=== PATIENT | male | born 1960 | race Caucasian/White ===

== ENCOUNTER 2019-02-01 18:04 | Emergency (ER) | payer OTHER, SELFPAY ==
[2019-02-01 18:12] VITALS: BP 166/102; PULSE 71; RESP 20; O2SAT 99
--- NOTE | 2019-02-01 20:28 | ED_ITS ---
HPI - General Adult General Chief complaint: Extremity Injury, Upper Stated complaint: LACERATION OF LEFT HAND NOT HEALING Time Seen by Provider: 02/01/19 20:04 Source: patient Mode of arrival: Ambulatory Limitations: no limitations History of Present Illness HPI narrative: 58-year-old male who several weeks ago underwent a left middle finger trigger finger release and also carpal tunnel [place]. He states that since that time he has had the stitch in the palm of his hand removed. He did feel like that the wound opened up after that. He then started developing some redness on his left middle finger. Since that time he has completed 1 course of antibiotics. He is currently on a 2nd course of doxycycline. He has been seen in the walk-in clinic. He was told by his provid er that he should be followed up by Orthopedics here in the local area. He is not from this area but will be here for the next month or so. Related Data Home Medications Medication Instructions Recorded Confirmed amlodipine PO 01/31/19 01/31/19 losartan PO 01/31/19 01/31/19 Previous Rx's Medication Instructions Recorded doxycycline hyclate 100 mg tablet 100 mg PO BID 10 Days #20 tab 01/31/19 Allergies Allergy/AdvReac Type Severity Reaction Status Date / Time Sulfa (Sulfonamide Allergy Intermediate rash Verified 01/31/19 17:54 Antibiotics) moxifloxacin Allergy Verified 02/01/19 18:16 Review of Systems Constitutional Constitutional: Denies fever(s) Musculoskeletal Comments: Redness left middle finger with some pain with flexion Integumentary/Breasts Comments: Redness to the left middle finger Neurologic Neurologic: Denies behavioral changes Psychiatric Psychiatric: Denies behavioral changes Hematologic/Lymphatic Hematologic/Lymphatic: Denies easy bleeding and Denies easy bruising Patient History Medical History Hypertension (Acute) Social History Smoking Status: Never smoker alcohol intake frequency: holidays/special occasions only Alcohol type: beer and hard liquor Substance Use Type: does not use Exam Initial Vital Signs Initial Vital Signs: Vital Signs Pulse Rate 71 02/01/19 18:12 Respiratory Rate 20 02/01/19 18:12 Blood Pressure 166/102 H 02/01/19 18:12 Pulse Oximetry 99 02/01/19 18:12 Const General: cooperative, healthy appearing, comfortable and well developed Cardio Pulses: radial pulses present on the left Skin Other: Redness on the volar aspect of the left middle finger from the MCP joint distal. Does have a 1 cm open wound on the palm of his hand at the base of the left middle finger consistent with his trigger finger release surgery. Neuro General: alert and awake Sensory Exam: no sensory deficits noted Extrem General: normal to inspection and capillary refill normal Other: Left wrist unremarkable Psych Appearance: grossly normal and well kempt Course Vital Signs Vital signs: Vital Signs - 8 hr 02/01/19 18:12 02/01/19 20:33 Pulse Rate 71 69 Respiratory Rate 20 20 Blood Pressure 166/102 H Blood Pressure [Right Arm] 160/99 H Pulse Oximetry 99 98 Medical Decision Making [facility] Narrative Medical decision making narrative: Patient does have redness and swelling to the left middle finger. I do have concern about infection in this area. He is currently on antibiotics for this. I have low suspicion for flexor tendon synovitis. He is nontoxic appearing. There is no abscess to be drained. He does have a wound on the palm of his hand consistent with the stated history. There is no redness around this area. His carpal tunnel surgery site looks well. I do not feel the need to change his antibiotics. He was given phone number for follow-up with Orthopedics the beginning of next week which he did not think is unreasonable. He was also instructed to talk with his insurance company and also his primary provider. He was given return precautions. He expressed understanding and agreement with plan. Discharge Plan Departure Patient Disposition: Home Clinical Impression: Cellulitis of finger of left hand Discharge Date/Time: 02/01/19 20:35 Instructions: DI for Cellulitis -- Adult Activity Restrictions/Additional Instructions: Recommend that you continue with the doxycycline. On Monday call the [facility] group. Their phone number is [phone] for a follow-up. Continue with all the other care instructions that we discussed. Return to the emergency department for any new or worsening symptoms Prescriptions: No Action losartan PO RF: 0 amlodipine PO RF: 0 doxycycline hyclate 100 mg tablet 100 mg PO BID 10 Days Qty: 20 RF: 0
[2019-02-01 20:33] VITALS: BP 160/99; PULSE 69; RESP 20; O2SAT 98
== END 2019-02-01 20:35 | disposition home or self-care (01) ==
PROVIDERS: Emergency Provider Emergency Medicine
DX: L03.012 Cellulitis of left finger (principal)
CPT/HCPCS: 99282

== ENCOUNTER 2019-02-05 02:07 | Emergency (ER) | payer OTHER, SELFPAY ==
[2019-02-05 02:15] VITALS: BP 137/99; PULSE 95; RESP 16; TEMP 36.6; O2SAT 95; BMI 35.2
[2019-02-05 02:18] VITALS: PULSE 95
--- NOTE | 2019-02-05 02:20 | ED_ITS ---
HPI - Extremity Problem General Chief complaint: Extremity Problem,Nontraumatic Stated complaint: pain left middle finger, recent surgery Time Seen by Provider: 02/05/19 02:11 Source: patient Mode of arrival: Ambulatory Limitations: no limitations History of Present Illness HPI Narrative: Patient is a 58-year-old male who I evaluated the emergency department just a couple days ago for a potential infection in his left middle finger. Several weeks ago he underwent a left carpal tunnel release on the left middle finger trigger finger release. This was done by up orthopedic provider out of state. He is here on business. Couple days ago when I saw him he was currently on doxycycline for an infection of his finger. He continues to be on doxycycline. At that time that felt that there could potentially be an infection in his finger however my concern for flexor tenosynovitis was low. We did discuss continue with the antibiotics and returning if his symptoms worsen. He returns this morning for what he states are worsening symptoms. More pain in his left middle finger. He states that he has been continuing the antibiotics as directed. No fevers. No wrist pain. Related Data Home Medications Medication Instructions Recorded Confirmed amlodipine PO 01/31/19 01/31/19 losartan PO 01/31/19 01/31/19 Previous Rx's Medication Instructions Recorded doxycycline hyclate 100 mg tablet 100 mg PO BID 10 Days #20 tab 01/31/19 ciprofloxacin HCl 750 mg PO BID 10 Days #20 tab 02/05/19 Allergies Allergy/AdvReac Type Severity Reaction Status Date / Time Sulfa (Sulfonamide Allergy Intermediate rash Verified 01/31/19 17:54 Antibiotics) moxifloxacin Allergy Verified 02/01/19 18:16 Review of Systems Constitutional Constitutional: Denies fever(s) Cardiovascular Cardiovascular: Denies chest pain and Denies dyspnea Respiratory Respiratory: Denies dyspnea Musculoskeletal Musculoskeletal: Denies tingling Comments: Left middle finger pain and swelling and redness Integumentary/Breasts Comments: Pain and swelling redness left middle finger Neurologic Neurologic: Denies tingling Hematologic/Lymphatic Hematologic/Lymphatic: Denies easy bleeding and Denies easy bruising Patient History Medical History Hypertension (Acute) Social History Smoking Status: Never smoker alcohol intake frequency: holidays/special occasions only Alcohol type: beer and hard liquor Substance Use Type: does not use Exam Initial Vital Signs Initial Vital Signs: Vital Signs Temperature 97.8 F 02/05/19 02:15 Pulse Rate 95 H 02/05/19 02:15 Respiratory Rate 16 02/05/19 02:15 Blood Pressure 137/99 H 02/05/19 02:15 Pulse Oximetry 95 02/05/19 02:15 Const General: cooperative and comfortable Orientation: alert, awake and oriented x3 Cardio Pulses: radial pulses present on the left Skin Other: Patient's left middle finger is swollen. Does have redness on the palmar aspect in between the DI PN PIP joint. This does appear to be slightly more red than a couple days ago. Does appear to be slightly more swollen a couple days ago. He has a 1 cm incision on the palmar aspect just proximal to the MCP joint to the left middle finger. This is consistent with his stated history of a trigger finger release. There is no erythema around this area however is draining clear fluid. Neuro Sensory Exam: no sensory deficits noted Extrem Other: Patient does have swelling of the left middle finger. He does have tenderness along the volar aspect however is able to flex and extend the MCP GI p.m. PIP joint. He does have some discomfort with this but is able to do a. He is not holding his finger in flexion. Has the surgical incision on the palm consistent with trigger finger release. Has a well-healed incision at the palmar aspect of the wrist consistent with his carpal tunnel release. Psych Appearance: grossly normal and well kempt Course Orders Ordered: ED Orders 02/05/19 02:21 XR hand LT min 3V Stat 02/05/19 02:30 Basic Metabolic Panel Stat C-Reactive Protein Quant Stat Complete Blood Count AUTO DIFF Stat Erythrocyte Sedimentation Rate Stat 02/05/19 03:42 Wound Culture and Gram Stain Stat Discontinued Medications Vancomycin HCl (Vancomycin) 1,000 mg in 200 mls @ 200 mls/hr IV NOW ONE Stop: 02/05/19 04:28 Last Infusion: 02/05/19 04:38 Dose: 0 mls/hr Documented by: Admin: 02/05/19 03:37 Dose: 200 mls/hr Documented by: XIAO Vital Signs Vital signs: Vital Signs - 8 hr 02/05/19 02:15 02/05/19 02:18 02/05/19 04:38 Temperature 97.8 F Pulse Rate 95 H 83 Pulse Rate [Left Radial] 95 H Respiratory Rate 16 16 Blood Pressure 137/99 H Blood Pressure [Right Arm] 139/85 Pulse Oximetry 95 99 MDM - Extremity (Nontraumatic) Lab Data Attestation: I reviewed the patient's lab results. Result diagrams: 02/05/19 02:30 02/05/19 02:30 Labs: Lab Results 02/05/19 02/05/19 Range/Units 02:30 02:30 WBC 8.3 (4.5-11.0) X10^3/uL RBC 4.81 (4.5-5.9) X10^6/uL Hgb 15.5 (13.5-17.5) g/dL Hct 43.6 (41-53) % MCV 90.6 (80-100) fL MCH 32.2 (26-34) PG MCHC 35.6 (30-36) % RDW 12.8 (11.6-14.8) % Plt Count 269 (150-400) X10^3/uL Neut % (Auto) 68.3 (50-75) % Lymph % (Auto) 20.0 L (25-40) % [place] % (Auto) 8.5 (3-14) % Eos % (Auto) 1.8 L (2-4) % Baso % (Auto) 1.4 (0-2) % Neut # (Auto) 5700 (1702-0677) /uL Lymph # (Auto) 1700 (1279-2441) /uL [place] # (Auto) 700 (0-900) /uL Eos # (Auto) 100 (0-450) /uL Baso # (Auto) 100 (0-100) /uL ESR 3 (0-15) MM/HR Sodium 140 (137-145) mmol/L Potassium 3.9 (3.4-5.1) mmol/L Chloride 106 (98-107) mmol/L Carbon Dioxide 24 (22-32) mmol/L BUN 14 (9-20) mg/dL Creatinine 0.80 (0.66-1.25) mg/dL Estimated GFR > 60.0 (>60) mL/min BUN/Creatinine Ratio 17.5 (6-22) Glucose 145 H (80-110) mg/dL Calcium 8.8 (8.4-10.2) mg/dL C-Reactive Protein < 0.5 (<1.0) mg/dL Imaging Data Hand x-ray: Attestation: I personally reviewed and interpreted this imaging study as follows: My impression: No foreign bodies, soft tissue swelling around the left middle finger, MDM Narrative Medical decision making narrative: Patient's finger today does look somewhat worse than a couple days ago. He states that he has been taking the doxycycline as directed. He does not have a elevated white blood cell count. His ESR and CRP are unremarkable. The x-ray shows soft tissue swelling but no signs of osteomyelitis. He is afebrile. Is nontoxic appearing. He does have swelling and redness and pain in his left finger however I do not feel that it is flexor tenosynovitis. Does have clear drainage from the surgical wound on the palm. This was cultured per Orthopedics request. I did discuss the case with Dr. Guaman who is on-call for Orthopedics. She asked that I give him a dose of vancomycin here in the emergency department. We did discuss admitting the patient to the hospital for orthopedic evaluation versus having him follow up in the office later today. I do not feel that following up in the office later to day is unreasonable given his symptoms and how long the symptoms have been going on and his laboratory work. He does work as a fisherman. The doxycycline he is on should cover for water born infections. He has had an issue with moxifloxacin in the past but states that he can take ciprofloxacin. He states that he is a history of diverticulitis and has taken his medication for that without any problems. Patient was given follow-up instructions for Orthopedics later today. Given a prescription for the ciprofloxacin. I did consider adding clindamycin however I will wait for him to see orthopedics later today. Discharge Plan Departure Patient Disposition: Home Clinical Impression: Cellulitis of finger of left hand Activity Restrictions/Additional Instructions: I did discuss her case with Dr. Guaman who is the orthopedic provider instructional technology coordinator. She is with the [facility] group. They do have offices here in [place] and also in [place]. She would like to follow you up later today in the office. There are 2 numbers that she can call. He can call [phone]. You can also contact [phone]. Tell them when you call that you were seen here in the emergency department and that the emergency provider discuss the case with Dr. Guaman and that she would like to follow up later today. Continue with the doxycycline as directed. Start taking the new an tibiotic as directed. Return to the emergency department for any new or worsening symptoms Prescriptions: New ciprofloxacin HCl 750 mg tablet 750 mg PO BID 10 Days Qty: 20 RF: 0 No Action losartan PO RF: 0 amlodipine PO RF: 0 doxycycline hyclate 100 mg tablet 100 mg PO BID 10 Days Qty: 20 RF: 0
--- NOTE | 2019-02-05 02:21 | DI.RAD.S_ITS ---
PROCEDURE: XR HAND LT MIN 3V INDICATIONS: Left middle finger infection TECHNIQUE: 3 views of the hand(s) acquired. COMPARISON: None. FINDINGS: Bones: No fractures or dislocations. First distal phalange exostosis noted. Carpal bones are normally aligned. No suspicious bony lesions. No osseous erosive change or periosteal reaction. Soft tissues: No suspicious soft tissue calcifications. Mild third digit soft tissue swelling is noted compatible with reported infection. No soft tissue gas identified. IMPRESSION: No micaela evidence of osteomyelitis. Plain film radiographs can be insensitive to osteomyelitis during the initial 15 days of the disease process. If there is clinical concern for osteomyelitis, then three-phase nuclear medicine bone scan should be considered for further evaluation. Dictated by: Ruht Vaqzuez MD, PhD on 02/05/2019 at 8:23 Approved by: Ruth Vazquez MD, PhD on 02/05/2019 at 8:24
[2019-02-05 02:40] LABS: Add Manual Diff / Slide Review NO; Basophils Absolute Auto 100 /uL (0-100); Basophils Percent Auto 1.4 % (0-2); Eosinophils Absolute Auto 100 /uL (0-450); Eosinophils Percent Auto 1.8 % (2-4); Hematocrit 43.6 % (41-53); Hemoglobin 15.5 g/dL (13.5-17.5); Lymphocytes Absolute Auto 1700 /uL (1100-4500); Mean Corpuscular HGB Conc 35.6 % (30-36); Mean Corpuscular Hemoglobin 32.2 PG (26-34); Mean Corpuscular Volume 90.6 fL (80-100); Monocytes Absolute Auto 700 /uL (0-900); Monocytes Percent Auto 8.5 % (3-14); Neutrophils Absolute Auto 5700 /uL (1500-7000); Neutrophils Percent Auto 68.3 % (50-75); Platelet Count 269 X10^3/uL (150-400); Red Blood Cell Count 4.81 X10^6/uL (4.5-5.9); Red Cell Distribution Width 12.8 % (11.6-14.8); White Blood Cell Count 8.3 X10^3/uL (4.5-11.0)
[2019-02-05 02:54] LABS: BUN Creatinine Ratio 17.5 (6-22); Blood Urea Nitrogen 14 mg/dL (9-20); C-Reactive Protein Quant < 0.5 mg/dL (<1.0); Calcium 8.8 mg/dL (8.4-10.2); Carbon Dioxide 24 mmol/L (22-32); Chloride 106 mmol/L (98-107); Estimated Glomerular Filt Rate > 60.0 mL/min (>60); Glucose 145 mg/dL (80-110); HEMOLYSIS < 15 (0-50); Potassium 3.9 mmol/L (3.4-5.1); Sodium 140 mmol/L (137-145)
[2019-02-05 02:58] LABS: Erythrocyte Sedimentation Rate 3 MM/HR (0-15)
[2019-02-05] MEDS: VANCOMYCIN 1,000 MG/200 ML PIGGYBACK 200 MG IV (03:37)
--- NOTE | 2019-02-05 03:48 | PC.NURSE ---
Wound culture of left palm
[2019-02-05 04:38] VITALS: BP 139/85; PULSE 83; RESP 16; O2SAT 99
[2019-02-05 05:09] VITALS: BP 126/90; PULSE 72; RESP 16; O2SAT 97
== END 2019-02-05 05:10 | disposition home or self-care (01) ==
PROVIDERS: Emergency Provider Emergency Medicine
DX: Z98.890 Other specified postprocedural states (principal); L03.114 Cellulitis of left upper limb
CPT/HCPCS: 36415; 73130; 80048; 85025; 85651; 86140; 87070; 87075; 87147; 87205; 96365; 99283; 99284